=== PATIENT | male | born 1945 | race Caucasian/White ===

== ENCOUNTER → 2020-10-14 | Outpatient (CLI) | payer MEDICARE, OTHER ==
[~2020-10-14] MED LIST: CATHETER FLUSH 10 ML SYR IV PRN; HOLD METFORMIN - RECEIVED CONTRAST 20 ML VIAL IV SCH; IOHEXOL 350 MG/ML 100 ML (OMNIPAQUE 350) VIAL IV ONE; NS 100 ML (IVPB) BAG IV ONE
--- NOTE | 2020-10-14 09:08 | Diagnostic Imaging Report ---
CT CHEST W TECHNIQUE: Multiple contiguous axial images were obtained through the chest with the use of intravenous contrast. All CT scans use one or more of the following dose optimizing techniques: automated exposure control, MA and/or KvP adjustment based on a patient size and exam type, or iterative reconstruction. INDICATION: COPD COMPARISON: None available. FINDINGS: Lungs and airway: No endoluminal nodule within the trachea. No pulmonary mass or consolidation. No bronchiectasis or features of pulmonary fibrosis. No pulmonary nodules would be suspicious for primary lung cancer. Pleura: No pleural effusion or pneumothorax. Heart and mediastinum: Thyroid is normal. No subclavicular or axillary lymphadenopathy. No mediastinal or hilar lymphadenopathy. Heart is normal in size without pericardial effusion. Moderate coronary artery calcifications are present. Normal caliber thoracic aorta with moderate atherosclerotic plaquing. Upper abdomen: No concerning osseous lesion. Musculoskeletal: Left shoulder reverse arthroplasty. 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 IMPRESSION: 1. No features of clinically active lung cancer. 2. 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 If outside imaging is available, comparison could be made to document long-term stability. Dictated by: Dictated on workstation # [id number]
== END ==
LOC: RAD FS 07:51
PROVIDERS: ATTEND Family Medicine
DX: J44.9 Chronic obstructive pulmonary disease, unspecified (principal); M89.9 Disorder of bone, unspecified
CPT/HCPCS: 71260